=== PATIENT | male | born 2000 | race Caucasian/White ===

== ENCOUNTER 2021-10-25 23:40 | Emergency (ER) | payer OTHER, SELFPAY ==
[2021-10-25 23:49] VITALS: BP 138/85; PULSE 61; RESP 17; TEMP 36.9; O2SAT 98; BMI 22.2
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
== END 2021-10-26 00:06 | disposition home or self-care (01) ==
PROVIDERS: Emergency Provider Emergency Medicine
DX: S01.511A Laceration without foreign body of lip, initial encounter (principal); W22.8XXA Striking against or struck by other objects, initial encounter
CPT/HCPCS: 12011; 99282

== ENCOUNTER 2022-12-10 10:10 | Emergency (ER) | payer OTHER, SELFPAY ==
[2022-12-10 10:21] VITALS: BP 129/64; PULSE 81; RESP 15; TEMP 36.9; O2SAT 99; BMI 23.3
[2022-12-10 11:02] LABS: Strep Grp A by PCR Rapid Negative (Negative)
--- NOTE | 2022-12-10 11:28 | ED_ITS ---
HPI - URI/Sore Throat <Batsheva Guevara PA-C - Last Filed: 12/10/22 12:55> General Chief Complaint: Upper Respiratory Symptoms Stated Complaint: sinus pressure, cough, sore throat Time Seen by Provider: 12/10/22 11:14 Source: patient Mode of arrival: Ambulatory History of Present Illness HPI Narrative: 22-year-old male with no reported past medical history presents to the ED with 2 days of sore throat, cough, nasal congestion. Patient also endorses some chills, denies fevers. Patient denies chest pain, shortness of breath, nausea, vomiting, diarrhea. Related Data Previous Rx's Medication Instructions Recorded benzonatate 200 mg capsule 200 mg PO TID PRN cough #30 caps 12/10/22 Allergies Allergy/AdvReac Type Severity Reaction Status Date / Time No Known Drug Allergies Allergy Verified 12/10/22 10:26 Review of Systems <Batsheva Guevara PA-C - Last Filed: 12/10/22 12:55> Review of Systems ROS Unobtainable: All systems reviewed & are unremarkable except as noted in HPI and below Constitutional Constitutional: Reports chills, Denies fatigue, Denies fever(s), Denies frequent falls, Denies lethargy and Denies weakness Eyes Eyes: Denies change in vision, Denies eye discharge, Denies irritation and Denies loss of vision ENT Ears, Nose, Mouth, and Throat: Denies change in voice, Denies dizziness, Reports nasal congestion, Denies neck pain, Reports sore throat and Denies throat swelling Cardiovascular Cardiovascular: Denies chest pain, Denies irregular heart rhythm, Denies lightheadedness, Denies palpitations, Denies dyspnea, Denies dyspnea on exertion and Denies orthopnea Respiratory Respiratory: Reports cough, Denies dyspnea, Denies dyspnea on exertion and Denies wheezing Gastrointestinal Gastrointestinal: Denies abdominal pain, Denies change in bowel habits, Denies diarrhea, Denies nausea and Denies vomiting Genitourinary Genitourinary: Denies hematuria, Denies flank pain, Denies urinary incontinence and Denies urinary urgency Musculoskeletal Musculoskeletal: Denies back pain, Denies muscle weakness, Denies neck pain, Denies numbness and Denies tingling Integumentary/Breasts Skin/Breast: Denies pruritus, Denies erythema, Denies rash and Denies wounds Neurologic Neurologic: Denies behavioral changes, Denies confusion, Denies dizziness, Denies frequent falls, Denies loss of vision, Denies numbness, Denies tingling and Denies weakness Psychiatric Psychiatric: Denies anxiety, Denies behavioral changes, Denies confusion, Denies depression, Denies homicidal ideation and Denies suicidal ideation Endocrine Endocrine: Denies fatigue, Denies flushing and Denies palpitations Hematologic/Lymphatic Hematologic/Lymphatic: Denies easy bruising Allergic/Immunologic Allergic/Immunologic: Denies urticaria, Denies throat swelling and Denies wheezing Patient History <Batsheva Geuvara PA-C - Last Filed: 12/10/22 12:55> Medical History Healthy adult Social History Smoking Status: Former smoker Smoking Status: Former smoker alcohol intake frequency: holidays/special occasions only Substance Use Type: does not use Exam <Batsheva Guevara PA-C - Last Filed: 12/10/22 12:55> Narrative Exam Narrative: Const General:?cooperative, healthy appearing and comfortable [facility] Head:?normal to inspection Ears:?hearing grossly normal bilaterally Nose:?external nose normal Face and sinus:?normal facial exam and sinuses nontender Mouth:?oral mucosae normal Throat:?posterior oropharynx normal Eyes General:?appearance normal, both eyes and all related structures Neck Neck:?normal visual inspection and no lymphadenopathy noted Resp Effort & Inspection:?normal respiratory effort Auscultation:?clear to auscultation bilaterally Cardio Rate:?regular rate Rhythm:?regular rhythm Neuro General:?patient alert, patient awake and patient oriented x3 Initial Vital Signs Initial Vital Signs: Vital Signs Temperature 98.4 F 12/10/22 10:21 Pulse Rate 81 12/10/22 10:21 Respiratory Rate 15 12/10/22 10:21 Blood Pressure 129/64 12/10/22 10:21 Pulse Oximetry 99 12/10/22 10:21 Oxygen Delivery Method Room Air 12/10/22 10:21 <Steffany Hernadez DO - Last Filed: 12/10/22 19:15> Initial Vital Signs Initial Vital Signs: Vital Signs Temperature 98.4 F 12/10/22 10:21 Pulse Rate 81 12/10/22 10:21 Respiratory Rate 15 12/10/22 10:21 Blood Pressure 129/64 12/10/22 10:21 Pulse Oximetry 99 12/10/22 10:21 Oxygen Delivery Method Room Air 12/10/22 10:21 Course <Batsheva Guevara PA-C - Last Filed: 12/10/22 12:55> Orders Ordered: ED Orders 12/10/22 10:31 Covid-19 + FLU A/B + RSV - PCR Stat Strep Grp A by PCR Rapid Stat Vital Signs Vital signs: Vital Signs - 8 hr 12/10/22 10:21 Temperature 98.4 F Pulse Rate 81 Respiratory Rate 15 Blood Pressure 129/64 Pulse Oximetry 99 Oxygen Delivery Method Room Air <Steffany Hernadez DO - Last Filed: 12/10/22 19:15> Orders Ordered: ED Orders 12/10/22 10:31 Covid-19 + FLU A/B + RSV - PCR Stat Strep Grp A by PCR Rapid Stat Vital Signs Vital signs: Vital Signs - 8 hr 12/10/22 10:21 Temperature 98.4 F Pulse Rate 81 Respiratory Rate 15 Blood Pressure 129/64 Pulse Oximetry 99 Oxygen Delivery Method Room Air MDM - URI/Sore Throat <Batsheva Guevara PA-C - Last Filed: 12/10/22 12:55> Lab Data Labs: Lab Results 12/10/22 12/10/22 Range/Units 10:31 10:31 SARS-CoV-2 (PCR) Negative (Negative) Influenza A (RT-PCR) Flu a negative (NEGATIVE) Influenza B (RT-PCR) Flu b negative (NEGATIVE) RSV (PCR) Negative (Negative) Group A Strep (PCR) Negative (Negative) MDM Narrative Medical decision making narrative: 22-year-old male with no reported past medical history presents to the ED with 2 days of sore throat, cough, nasal congestion. Patient was swabbed for strep, respiratory panel. Strep and respiratory panel negative. Recommend supportive measures. Prescribed Tessalon Perles. Recommend good hydration. ED return precautions were discussed with patient. Patient verbalized understanding. Medical records reviewed: Yes <Steffany Hernadez DO - Last Filed: 12/10/22 19:15> Lab Data Labs: Lab Results 12/10/22 12/10/22 Range/Units 10:31 10:31 SARS-CoV-2 (PCR) Negative (Negative) Influenza A (RT-PCR) Flu a negative (NEGATIVE) Influenza B (RT-PCR) Flu b negative (NEGATIVE) RSV (PCR) Negative (Negative) Group A Strep (PCR) Negative (Negative) Discharge Plan Departure Patient Disposition: Home Clinical Impression: Upper respiratory infection Instructions: DI for Viral Upper Respiratory Infection -- Adult Activity Restrictions/Additional Instructions: You were evaluated in the ED today for nasal congestion and cough. Your strep test was negative. Your symptoms are likely due to a viral upper respiratory infection, which will run its course over the next week or 2. You are being prescribed Tessalon Perles for your cough. You may take any other [id number] medications for symptom relief. You were also tested for COVID-19, RSV, influenza, the results of which are pending. We will call you if anything turns up positive. Continue good hydration. Return to the ED if you experience short of breath, chest pain. Please follow-up with your PCP as soon as possible. Prescriptions: New benzonatate 200 mg capsule 200 mg PO TID PRN (Reason: cough) Qty: 30 0RF Referrals: Neil Blankenship PA-C [Primary Care Provider] - Stand Alone Forms: Patient Portal/API <Steffany Hernadez DO - Last Filed: 12/10/22 19:15> Cosign ED Attending Cosradhaature Attestation: I was immediately available in the department for consultation. Documentation has been reviewed.
[2022-12-10 11:31] LABS: Influenza A - CEPHEID Flu A NEGATIVE (NEGATIVE); Influenza B - CEPHEID Flu B NEGATIVE (NEGATIVE); Respiratory Syncytial Virus Negative (Negative)
[2022-12-10 11:51] LABS: COVID-19 CEPHEID 4-PLEX PCR Negative (Negative)
== END 2022-12-10 11:31 | disposition home or self-care (01) ==
PROVIDERS: Emergency Medicine; Emergency Provider Student in an Organized Health Care Education/Training Program; PCP Physician Assistant
DX: J06.9 Acute upper respiratory infection, unspecified (principal); Z87.891 Personal history of nicotine dependence
CPT/HCPCS: 0241U; 87651; 99281; 99282

== ENCOUNTER → 2025-02-21 18:40 | Outpatient (CLI) | payer OTHER, SELFPAY ==
--- NOTE | 2025-02-21 18:43 | DI.MRI.S_ITS ---
PROCEDURE: MR FOREARM LT WO/W CON INDICATIONS: left forearm mass TECHNIQUE: Noncontrast coronal T1 spin echo and STIR, sagittal T1 spin echo with fat saturation and STIR, axial T1 spin echo and T2 fast spin echo with fat saturation. After the administration of contrast, axial/sagittal/coronal T1 spin echo with fat saturation through the left forearm . COMPARISON: None. FINDINGS: Image quality: Excellent. Bones: The visualized bone marrow demonstrates normal signal on all sequences. The overlying cortex appears intact. No abnormal intraosseous enhancement. Soft tissues: No soft tissue masses are visualized. The scanned muscles demonstrate normal overall bulk and internal signal. Subcutaneous tissues appear normal as well. No abnormal soft tissue enhancement. IMPRESSION: Negative examination. No mass. Dictated by: Jimmie Tidwell M.D. on 02/22/2025 at 12:53 Approved by: Jimmie Tidwell M.D. on 02/22/2025 at 12:54
== END ==
PROVIDERS: PCP Physician Assistant
DX: R22.32 Localized swelling, mass and lump, left upper limb (principal)
CPT/HCPCS: 73220; A9579